=== PATIENT | female | born 2000 | race African-American/Black ===

== ENCOUNTER 2022-02-09 22:54 | Emergency (ER) | payer MEDICAID ==
[~2022-02-09] VITALS: Ht 167.6 cm; Wt 91.0 kg
[2022-02-09 23:03] VITALS: BP 131/67
== END 2022-02-10 04:11 | disposition home or self-care (01) ==
LOC: ER 22:54
DX: T74.21XA Adult sexual abuse, confirmed, initial encounter (principal)
CPT/HCPCS: 99283

== ENCOUNTER 2024-12-15 19:20 | Emergency (ER) | payer MEDICAID ==
[~2024-12-15] VITALS: Ht 172.7 cm; Wt 100.0 kg
[2024-12-15 19:21] VITALS: BP 127/94; PULSE 80; RESP 16; TEMP 36.5; O2SAT 100
[2024-12-15] MEDS ORDERED: LIDO700A15 TP (22:57)
[2024-12-15] MEDS ORDERED: NAPR-1176 MT (22:57)
[2024-12-15 23:09] VITALS: TEMP 97.7
[2024-12-15] MEDS: ACETAMINOPHEN 325MG TABLET PO ONE (23:09)
== END 2024-12-15 23:15 | disposition home or self-care (01) ==
LOC: ER 19:20
DX: S70.01XA Contusion of right hip, initial encounter (principal); I10 Essential (primary) hypertension; F20.9 Schizophrenia, unspecified; F31.9 Bipolar disorder, unspecified; Z79.1 Long term (current) use of non-steroidal anti-inflammatories (NSAID); V89.2XXA Person injured in unspecified motor-vehicle accident, traffic, initial encounter; Y93.89 Activity, other specified; Y92.89 Other specified places as the place of occurrence of the external cause; Y99.8 Other external cause status
CPT/HCPCS: 73502; 99283

== ENCOUNTER 2025-06-22 19:42 | Emergency (ER) | payer MEDICAID ==
[~2025-06-22] VITALS: Ht 170.2 cm; Wt 90.0 kg
[~2025-06-22 19:42] MED LIST: LIDO-53 TP; NAPR-1176 MT; ONDA4TAB50 MT; PANT40TA51 PO
[2025-06-22 19:44] VITALS: TEMP 37.1; O2SAT 100
[2025-06-22] MEDS: ACETAMINOPHEN 500MG TABLET PO ONE (21:47)
[2025-06-22 23:23] VITALS: BP 118/74; PULSE 83; RESP 18; O2SAT 100
== END 2025-06-22 23:28 | disposition home or self-care (01) ==
LOC: ER 19:42
DX: R07.89 Other chest pain (principal); F20.9 Schizophrenia, unspecified; I10 Essential (primary) hypertension; Z79.1 Long term (current) use of non-steroidal anti-inflammatories (NSAID)
CPT/HCPCS: 71045; 93005; 99283

== ENCOUNTER 2025-07-02 18:55 | Emergency (ER) | payer MEDICAID, OTHER ==
[~2025-07-02] VITALS: Ht 165.1 cm; Wt 82.0 kg
[2025-07-02 19:01] VITALS: TEMP 36.9; O2SAT 98
[2025-07-02 20:57] VITALS: TEMP 98.4
[2025-07-02] MEDS: ACETAMINOPHEN 325MG TABLET PO ONE (20:57)
[2025-07-02] MEDS ORDERED: IBUP-2028 MT (21:27)
[2025-07-02] MEDS ORDERED: LIDO-53 TP (21:27)
[2025-07-02] MEDS ORDERED: METH-653 MT (21:27)
[2025-07-02 22:03] VITALS: BP 135/84; PULSE 74; RESP 18; O2SAT 99
== END 2025-07-02 22:05 | disposition home or self-care (01) ==
LOC: ER 18:55
DX: S20.01XA Contusion of right breast, initial encounter (principal); I10 Essential (primary) hypertension; F20.9 Schizophrenia, unspecified; F31.9 Bipolar disorder, unspecified; Z79.1 Long term (current) use of non-steroidal anti-inflammatories (NSAID); X58.XXXA Exposure to other specified factors, initial encounter; Y93.89 Activity, other specified; Y92.410 Unspecified street and highway as the place of occurrence of the external cause; Y99.8 Other external cause status
CPT/HCPCS: 71045; 99284